=== PATIENT | male | born 1985 | race Caucasian/White ===

== ENCOUNTER 2017-03-24 10:06 | Emergency (ER) | payer OTHER ==
[2017-03-24 10:13] VITALS: TEMP 97.9
--- NOTE | 2017-03-24 10:21 | CPEKG ---
Heart Rate: 85 RR Interval: 706 P-R Interval: 136 QRSD Interval: 92 QT Interval: 364 QTC Interval: 433 P [place]: 54 QRS [place]: 64 T Wave [place]: -12 EKG Severity - BORDERLINE ECG - EKG Impression: SINUS RHYTHM EKG Impression: BORDERLINE T ABNORMALITIES, INFERIOR LEADS Electronically Signed By: Marcos Haas 24-Mar-2017 10:31:57
[2017-03-24 10:43] LABS: PLATELET COUNT 225 10^3/uL (150-400)
--- NOTE | 2017-03-24 10:44 | EDPHY ---
General Narrative: CHIEF COMPLAINT: Dizziness, shortness of breath, arm tingling, heart rate increased HISTORY OF PRESENT ILLNESS: Patient presents with 3 months duration of occasional lightheaded dizziness, shortness of breath, arm tingling and palpitations. These are difficult to describe and have no predictable modifying factors. There are mild in severity. They happen very rarely occasionally. Sometimes once a day, other times not happen at all. No no predictable modifying factors for this. He has no actual chest pain with this. No neck pain or stiffness. No fever chills. No recent travel or surgery. No erythema, pain or edema of the extremities. No history of venous thrombolic event. No history of dysrhythmia. No evaluation for this thus far. No other associated complaints or modifying factors. REVIEW OF SYSTEMS: Ten systems reviewed and are negative unless otherwise noted in the HPI PCP: Not established SPECIALISTS: None PAST MEDICAL HISTORY: Orthopedic injuries in high school PAST SURGICAL HISTORY: Left forearm surgery in high school SOCIAL HISTORY: Nonsmoker. Occasional alcohol. No drug use. Works in [employer] FAMILY HISTORY: Noncontributory EXAMINATION General Appearance: Alert, no distress Head: normocephalic, atraumatic Eyes: Pupils equal and round, no conjunctival pallor or injection ENT, Mouth: Mucous membranes moist airway patent Neck: Normal inspection, supple, non-tender Respiratory: Lungs are clear to auscultation. No wheezing or rhonchi or crackles Cardiovascular: Regular rate and rhythm. No murmur. Symmetric radial pulses 2+ Gastrointestinal: Abdomen is soft and nontender Back: non-tender, no bony abnormalities Neurological: GCS 15. A&O, nonfocal, normal gait Skin: Warm and dry, no rash Extremities: Nontender, no pedal edema Psychiatric: Mood and affect normal DIFFERENTIAL DIAGNOSES: Including but not limited to paroxysmal AFib, paroxysmal SVT, paroxysmal PVCs, dysrhythmia, duration number anxiety MDM: 10:30 a.m. Intermittent palpitations with shortness of breath, dizziness and lightheadedness. Patient's clinical picture fits that of paroxysmal dysrhythmia. He has no symptoms at this time with an EKG that shows sinus rhythm without ischemia. Vital signs were well within normal limits and his symptom free. This has been present for nearly 3 months. I have ordered laboratory studies, chest x-ray and he remains on a manager monitoring no acute distress. 11:20 a.m. CBC, chemistry, BNP and troponin are all within normal limits or negative. Chest x-ray is clear as read by me. No abnormal activity on the manager monitoring during emergency department admission. He is resting comfortably in no acute distress. 11:40 a.m. I discussed the case with the on-call cardiology PA. She has reviewed the patient's EKG. She agrees with an outpatient Holter monitor. She will have the office contact him to have 1 arranged for outpatient follow-up. 12:00 p.m. Patient re-evaluated. No acute distress. Vital signs remained stable. I discussed the negative laboratory studies and chest x-ray. I discussed my conversation with Cardiology. He is agreeable with this plan. We discussed discharge home with follow-up with them. We discussed avoiding any stimulants. We discussed ED precautions for worsening of symptoms, any chest pain or any syncope. He is comfortable this plan and discharged home stable condition. SUPERVISION: Patient was independently examined, but I discussed the case with my secondary supervising physician Dr. Haas - History Smoking Status: Never smoked - Objective Vital Signs: Initial Vital Signs Temperature (C) 97.9 F 03/24/17 10:10 Heart Rate 83 03/24/17 10:10 Respiratory Rate 16 03/24/17 10:10 Blood Pressure 148/86 H 03/24/17 10:10 O2 Sat (%) 97 03/24/17 10:10 O2 Delivery Mode Room Air Allergies/Adverse Reactions: No Known Allergies Allergy (Unverified 03/24/17 10:10) Home Medications: Medication Instructions Recorded NK [No Known Home Meds] 03/24/17 Laboratory Results: Laboratory Results 03/24/17 10:30 03/24/17 10:30 03/24/17 03/24/17 03/24/17 10:30 10:30 10:30 WBC 4.24 10^3/uL 10^3/uL (3.80-9.50) RBC 4.96 10^6/uL 10^6/uL (4.40-6.38) Hgb 15.7 g/dL g/dL (13.7-17.5) Hct 43.2 % % (40.0-51.0) MCV 87.1 fL fL (81.5-99.8) MCH 31.7 pg pg (27.9-34.1) MCHC 36.3 g/dL g/dL (32.4-36.7) RDW 12.9 % % (11.5-15.2) Plt Count 225 10^3/uL 10^3/uL (150-400) MPV 9.9 fL fL (8.7-11.7) Neut % (Auto) 50.0 % % (39.3-74.2) Lymph % (Auto) 36.3 % % (15.0-45.0) [place] % (Auto) 11.1 % % (4.5-13.0) Eos % (Auto) 1.7 % % (0.6-7.6) Baso % (Auto) 0.7 % % (0.3-1.7) Nucleat RBC Rel Count 0.0 % % (0.0-0.2) Absolute Neuts (auto) 2.12 10^3/uL 10^3/uL (1.70-6.50) Absolute Lymphs (auto) 1.54 10^3/uL 10^3/uL (1.00-3.00) Absolute Monos (auto) 0.47 10^3/uL 10^3/uL (0.30-0.80) Absolute Eos (auto) 0.07 10^3/uL 10^3/uL (0.03-0.40) Absolute Basos (auto) 0.03 10^3/uL 10^3/uL (0.02-0.10) Absolute Nucleated RBC 0.00 10^3/uL 10^3/uL (0-0.01) Immature Gran % 0.2 % % (0.0-1.1) Immature Gran # 0.01 10^3/uL 10^3/uL (0.00-0.10) Sodium 143 mEq/L mEq/L (135-145) Potassium 4.2 mEq/L mEq/L (3.5-5.2) Chloride 103 mEq/L mEq/L (97-110) Carbon Dioxide 24 mEq/l mEq/l (22-31) Anion Gap 16 mEq/L mEq/L (8-16) BUN 12 mg/dL mg/dL (7-23) Creatinine 1.3 mg/dL mg/dL (0.7-1.3) Estimated GFR > 60 Glucose 102 mg/dL H mg/dL (70-100) Calcium 9.5 mg/dL mg/dL (8.5-10.4) Magnesium 1.9 mg/dL mg/dL (1.6-2.3) Troponin I < 0.012 ng/mL ng/mL (0.000-0.034) NT-Pro-B Natriuret Pep 42 pg/mL pg/mL (0-125) Lipase 88 IU/L IU/L (23-300) TSH 2.690 uIU/mL uIU/mL (0.465-4.680) Departure - Departure Disposition: Home, Routine, Self-Care Clinical Impression: Palpitations, Light headed Condition: Good Instructions: Dizziness (ED) Additional Instructions: 1. Avoid stimulants as discussed 2. Contact the on-call service superintendent as provided 3. ED precautions for worsening symptoms, any chest pain, syncope Referrals: Santiago Rodriguez MD [Medical Doctor] - As per Instructions
[2017-03-24 12:46] VITALS: BP 122/75; PULSE 86; RESP 15; O2SAT 97
== END 2017-03-24 11:30 | disposition home or self-care (01) ==
DX: R42 Dizziness and giddiness (principal); R00.2 Palpitations